=== PATIENT | female | born 1940 ===

== ENCOUNTER 2022-06-26 09:38 | Day surgery (SDC) | payer OTHER | END 2022-06-26 17:35 | disposition home or self-care (01) | LOC: AMB-ENDOS 09:38 | PROVIDERS: ATTEND Colon & Rectal Surgery | DX: D37.8 Neoplasm of uncertain behavior of other specified digestive organs (principal); Z85.048 Personal history of other malignant neoplasm of rectum, rectosigmoid junction, and anus; R19.5 Other fecal abnormalities; Z20.822 Contact with and (suspected) exposure to COVID-19; Z88.6 Allergy status to analgesic agent ==